=== PATIENT | female | born 1990 | race Caucasian/White ===

== ENCOUNTER → 2019-03-01 04:35 | Observation (INO) ==
[2019-03-01 03:07] VITALS: BP 167/81
[2019-03-01 03:25] LABS: Basophils % 0.4 %; Eosinophils # 0.3 K/mcL (0.0-0.6); Eosinophils % 3.4 %; Hemoglobin 11.8 g/dL (11.5-15.4); Immature Granulocytes % 0.4 % (0-4); Lymphocytes # 2.5 K/mcL (0.6-4.6); Lymphocytes % 31.4 %; Mean Corpuscular HGB Conc 35.8 g/dL (31.6-35.5); Mean Corpuscular Hemoglobin 30.3 pg (28.0-33.3); Mean Corpuscular Volume 84.6 fL (83.0-100.0); Mean Platelet Volume 10.6 fL (9.4-12.4); Monocytes # 0.6 K/mcL (0.0-1.3); Monocytes % 7.5 %; Neutrophils # 4.6 K/mcL (1.6-8.9); Platelet Count 194 K/mcL (140-400); Red Cell Distribution Width 12.4 % (11.5-14.5); Segmented Neutrophils % 56.9 %
[2019-03-01 03:33] LABS: Protein/Creatinine Ratio,Urine 0.19 mg/mg (0.00-0.20)
[2019-03-01 03:34] LABS: Amphetamine Screen,Urine Negative ng/mL (Cutoff=1000); Barbiturate Screen,Urine Negative ng/mL (Cutoff=200); Benzodiazepines Screen,Urine Negative ng/mL (Cutoff=200); Cannabinoid Screen,Urine Negative ng/mL (Cutoff = 50); Cocaine Screen,Urine Negative ng/mL (Cutoff= 300); Opiate Screen,Urine Negative ng/mL (Cutoff=300); Phencyclidine Screen,Urine Negative ng/mL (Cutoff=25)
[2019-03-01 03:44] LABS: Alanine Aminotransferase 25 Units/L (7-52); Aspartate Amino Transferase 29 Units/L (13-39); BUN/Creatinine Ratio 15 (6-26); Blood Urea Nitrogen 10 mg/dL (6-20); Lactate Dehydrogenase 184 Units/L (140-271); Uric Acid 5.1 mg/dL (2.3-7.6); eGFR For Non-African Americans > 60 (> 60)
--- NOTE | 2019-03-03 09:52 | Discharge Summary ---
Date of Encounter: 03/03/19 Time of Encounter: 03:00 - Discharge Diagnosis (1) NST (non-stress test) reactive Priority: Secondary Status: Acute Comments: FHR 135 bpm, moderate variability, +15x15 accels, no decels. (2) 38 weeks gestation of Priority: Primary Status: Acute Comments: Admit to observation for labor evaluation. (3) Elevated blood pressure affecting in third trimester, antepartum Priority: Secondary Status: Acute Comments: Two elevated blood pressures on admission, normotensive at discharge. - Discharge Medications Prescriptions: No Action Colace 100 mg PO DAILY Formula Tablet 1 tab PO DAILY Fioricet 50-300-40 mg Capsule 1 tab PO Q4H PRN PRN Reason: migraines Aspirin 81 mg PO DAILY Acetaminophen [Tylenol] 1,000 mg PO Q6HR Ondansetron HCl [Zofran] 4 mg PO Q8HR PRN PRN Reason: Pain Home Medications: Aspirin 81 mg PO DAILY 03/01/19 [History] Colace 100 mg PO DAILY 03/01/19 [History] Fioricet 50-300-40 mg Capsule 1 tab PO Q4H PRN 03/01/19 [History] Formula Tablet 1 tab PO DAILY 03/01/19 [History] Acetaminophen [Tylenol] 1,000 mg PO Q6HR 03/02/19 [History] Ondansetron HCl [Zofran] 4 mg PO Q8HR PRN 03/02/19 [History] Allergies/Adverse Reactions: Allergy/AdvReac Type Severity Reaction Status Date / Time Cephalosporins Allergy Hives Verified 03/01/19 03:10 Penicillins Allergy Hives Verified 03/01/19 03:10 succinylcholine Allergy See Verified 03/01/19 03:10 Comments Sulfa (Sulfonamide Allergy Hives Verified 03/01/19 03:10 Antibiotics) Data Procedures and tests throughout hospitalization: Laboratory Tests 03/01/19 03/01/19 03/01/19 03:10 03:10 03:10 WBC 8.0 RBC 3.90 Hgb 11.8 Hct 33.0 L MCV 84.6 MCH 30.3 MCHC 35.8 H RDW 12.4 Plt Count 194 MPV 10.6 Immature Gran % 0.4 Seg Neutrophils % 56.9 Lymphocytes % 31.4 Monocytes % 7.5 Eosinophils % 3.4 Basophils % 0.4 Neutrophils # 4.6 Lymphocytes # 2.5 Monocytes # 0.6 Eosinophils # 0.3 Basophils # 0.0 BUN Creatinine Est GFR ( Amer) Est GFR (Non-Af Amer) BUN/Creatinine Ratio Uric Acid AST ALT Lactate Dehydrogenase Urine Creatinine 26 Protein/Creatinin Ratio 0.19 Urine Total Protein 5 Urine Opiates Screen Negative Ur Barbiturates Screen Negative Ur Phencyclidine Scrn Negative Ur Amphetamines Screen Negative U Benzodiazepines Scrn Negative Urine Cocaine Screen Negative U Marijuana (THC) Screen Negative Ur Drug Screen Interp See Below 03/01/19 03:10 WBC RBC Hgb Hct MCV MCH MCHC RDW Plt Count MPV Immature Gran % Seg Neutrophils % Lymphocytes % Monocytes % Eosinophils % Basophils % Neutrophils # Lymphocytes # Monocytes # Eosinophils # Basophils # BUN 10 Creatinine 0.68 Est GFR ( Amer) > 60 Est GFR (Non-Af Amer) > 60 BUN/Creatinine Ratio 15 Uric Acid 5.1 AST 29 ALT 25 Lactate Dehydrogenase 184 Urine Creatinine Protein/Creatinin Ratio Urine Total Protein Urine Opiates Screen Ur Barbiturates Screen Ur Phencyclidine Scrn Ur Amphetamines Screen U Benzodiazepines Scrn Urine Cocaine Screen U Marijuana (THC) Screen Ur Drug Screen Interp Date of admission: 03/01/19 02:49 Primary care physician: Demi Love MD Discharging clinician: Ally Carter Anticipated date of discharge: 03/03/19 - Patient Status Disposition: Home, Self-Care Condition: Good Functional capacity at discharge: independent ambulation Overall status at discharge: patient is progressing back to baseline - Discharge Instructions Follow Up With: Demi Love MD [Primary Care Provider] - Additional Instructions: LABOR AND DELIVERY DISCHARGE INSTRUCTIONS Signs and Symptoms to be Reported to your Doctor Immediately: * Sudden gush, continuous or intermittent lead of fluid from vagina (note the time of gush and color of fluid) * Onset of bright red vaginal bleeding with or without pain (if you had a vagin al exam during this visit you may notice some dark red spotting. This is normal.) * Contractions that are 5 minutes apart (from the beginning of one contraction to the beginning of the next) and last 45-60 seonds; contractions that you can no longer walk, talk or laugh through. * A change in the baby's activity. This could be an increase or decrease in activity. * Severe headache which does not go away with tylenol. * Sudden swelling in the face, hands, arms and/or legs. * Upper abdominal pain - sometimes associated with heartburn or nausea and is not relieved by Maalox, Mylanta or Tums. * Kick Counts __ One hour after a meal, lay down on one side in a quiet place. Count the number of time the baby moves during an hour. 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 She reports positive movement, denies bleeding and vaginal leakage of fluid. Irregular contractions noted with Reactive NST. Two elevated BP's noted on arrival, H labs collected and all returned WNL. BP normalized after first 2 blood pressures. Patient is to follow up for routine visit as scheduled. Time Attestation: Total time spent providing and/or coordinating discharge services: Time Spent: Less than 30 minutes Exam - Constitutional Vitals: Temp Pulse Resp BP 98.6 F 75 15 167/81 03/01/19 02:53 03/01/19 02:53 03/01/19 02:53 03/01/19 02:53 General appearance IM: A&O X 3, pleasant, no acute distress - Respiratory Respiratory exam: Present: CTAB - Cardiovascular Cardiovascular exam IM: Present: RRR, +S1, +S2 - GI/Abdominal GI/Abdominal exam IM: normal bowel sounds - Rectal Rectal exam: deferred - External exam: normal external exam - Extremities Exam Extremities exam IM: Present: full ROM, normal capillary refill, normal inspection - Neurological Exam Neurological exam: alert, normal gait, oriented X3 - VTE Reasons for not Prescribing Prophylaxis: Treatment not Indicated - Low risk for VTE
== END | disposition home or self-care (01) ==
LOC: 1NENULAB
PROVIDERS: ADMIT Registered Nurse; ATTEND Registered Nurse

== ENCOUNTER 2019-03-06 06:10 | Inpatient (IN) ==
[2019-03-06] MEDS ORDERED: Famotidine 20 MG/2 ML VIAL IVP ONE (06:25)
[2019-03-06] MEDS ORDERED: Metoclopramide 10 MG/2 ML VIAL IVP ONE (06:25)
[2019-03-06] MEDS ORDERED: Dexmedetomidine HCl 400 MCG/100 ML MLS IVC ONE (06:28)
[2019-03-06] MEDS ORDERED: Ringers Solution, Lactated 1,000 ML ONE ×4 (06:32→08:45)
[2019-03-06] MEDS ORDERED: *HR* Phenylephrine 10 MG/ML VIAL ONE (06:45)
[2019-03-06 06:47] LABS: Basophils # 0.1 K/mcL (0.0-0.2); Basophils % 0.7 %; Eosinophils # 0.4 K/mcL (0.0-0.6); Eosinophils % 4.8 %; Hematocrit 31.9 % (35.3-44.9); Hemoglobin 11.4 g/dL (11.5-15.4); Immature Granulocytes % 0.4 % (0-4); Lymphocytes # 2.5 K/mcL (0.6-4.6); Lymphocytes % 32.7 %; Mean Corpuscular HGB Conc 35.7 g/dL (31.6-35.5); Mean Corpuscular Hemoglobin 30.2 pg (28.0-33.3); Mean Corpuscular Volume 84.6 fL (83.0-100.0); Mean Platelet Volume 11.1 fL (9.4-12.4); Monocytes # 0.5 K/mcL (0.0-1.3); Monocytes % 6.5 %; Neutrophils # 4.2 K/mcL (1.6-8.9); Platelet Count 185 K/mcL (140-400); Red Blood Count 3.77 M/mcL (3.82-4.97); Red Cell Distribution Width 12.4 % (11.5-14.5); Segmented Neutrophils % 54.9 %
[2019-03-06 06:51] LABS: Amphetamine Screen,Urine Negative ng/mL (Cutoff=1000); Barbiturate Screen,Urine Positive ng/mL (Cutoff=200)
[2019-03-06 06:52] LABS: Benzodiazepines Screen,Urine Negative ng/mL (Cutoff=300); Cannabinoid Screen,Urine Negative ng/mL (Cutoff = 50); Cocaine Screen,Urine Negative ng/mL (Cutoff= 300); Opiate Screen,Urine Negative ng/mL (Cutoff=300); Phencyclidine Screen,Urine Negative ng/mL (Cutoff=25)
[2019-03-06] MEDS ORDERED: *HR* HYDROmorphone (PF) 1 MG/ML SYRINGE SQ ONE (07:30)
--- NOTE | 2019-03-06 07:35 | Anesthesia Evaluation PreOp ---
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 previous at [facility] via spinal without comp, record obtained,) Other Medical History: Other (bladder dysfunction, constipation, muscle stiffness) Anesthesia History: No Prior Anesthetic Complications, Past Anesthesia (previous , wisdom teeth ext.) Alcohol Use: none Drug use: none Medications and Allergies Aspirin 81 mg PO DAILY 03/01/19 [History] Colace 100 mg PO DAILY 03/01/19 [History] Formula Tablet 1 tab PO DAILY 03/01/19 [History] Acetaminophen [Tylenol] 1,000 mg PO Q6HR 03/02/19 [History] Allergy/AdvReac Type Severity Reaction Status Date / Time Cephalosporins Allergy Hives Verified 03/06/19 06:22 Penicillins Allergy Hives Verified 03/06/19 06:22 Sulfa (Sulfonamide Allergy Hives Verified 03/06/19 06:22 Antibiotics) succinylcholine AdvReac See Verified 03/06/19 06:23 Comments Anesthesia Results - Labs 03/06/19 06:25 Anesthesia Exam - HEENT Pupil (Motor): Pupils equal Mallampati: II Teeth: Normal Oral Opening: Greater than 3 - AUTOMOTIVE SALESPERSON LOC: Oriented - Cardiac Rhythm: Regular Murmur: None - Pulmonary Breath Sounds: bilateral Clear Respiratory Effort: Symmetrical Anesthesia Assess/Plan ASA Score: 3 Level of consciousness: Cooperative, Oriented Anesthetic Plan: General (TIVA if needed, GA precautions in place.), Spinal, Epidural Monitoring Plan: Standard Monitors (post-op pulse ox monitoring, will do reduced dose of intrathecal narcotic, previous recieved 100mcg morphine and 10 mcg Fent, Dr. Gibson recommened attempting reduced dose of intrathecal dilaudid at 50mcg.) Recovery Plan: PACU
[2019-03-06] MEDS ORDERED: EPHEDrine 50 MG/ML VIAL ONE (07:55)
[2019-03-06] MEDS ORDERED: Bupivacaine/PF 0.75% in Dex 2 ML AMPUL INFILT ONE (08:03)
[2019-03-06] MEDS ORDERED: Lidocaine -MPF 2% 5 ML VIAL ONE (08:03)
--- NOTE | 2019-03-06 08:05 | History & Physical Report ---
Date of Encounter: 03/06/19 Time of Encounter: 08:04 24 Hour HP Update - Instructions Instructions: If the History and Physical is less than 30 days old and was completed prior to A.M. admission and or procedure and has NOT been updated on calendar day of procedure please complete this update prior to performing procedure. - Update Patient reports changes in Medical Condition: No Changes in examination, assessment, or condition: No Changes in Medication: No Preop tests/diagnostics Reviewed: Yes Surgery Remains Indicated: Yes Consent for Planned Operative Procedure(s) Verified: Yes - Pre-Operative Checklist Preoperative Checklist Indicated: Yes Prophylactic Antibiotic Ordered: Yes Home Medications Include Beta Marguerite: No Is VTE Prophylaxis Indicated?: Yes
[2019-03-06] MEDS ORDERED: Clindamycin 900 MG/50 ML 900 MG/50 ML IV.SOLN IVPB ONE (08:07)
[2019-03-06] MEDS ORDERED: *HR* Oxytocin 10 UNIT/ML VIAL IM ONE (08:07)
[2019-03-06] MEDS ORDERED: *HR* Midazolam HCl 2 MG/2 ML VIAL ONE (08:54)
[2019-03-06] MEDS ORDERED: Ondansetron 4 MG/2 ML VIAL ONE (09:07)
--- NOTE | 2019-03-06 09:28 | OB/GYN Procedure Note ---
Section - Date of procedure: 03/06/19 Preop diagnosis: desires repeat Post-op diagnosis: same Procedure: repeat low transverse Surgeon: Haleigh Valenzuela Quantitated Blood Loss: 300 Was there an trust administrative assistant present: No Anesthesiologist: Eleuterio Gibson Flight Test Supervisor: Fred Peters Anesthesia Type: Spinal section complications: none Disposition: L&D Recovery Room Specimens: Placenta, Cord blood - (s) A Delivery Date: 03/06/19 Infant Delivery Time: 08:48 Presentation: vertex Position: YOEL Route of delivery: other Gender: Female Viability: Viable Pounds: 7 Ounces: 2 Gram Weight: 3225 kg at 1 minute: 8 at 5 minutes: 9 Specimens collected: cord blood Placenta: complete extraction Cord: nuchal cord, 3 umbilical vessels, nuchal reduced - Narrative Narrative: Patient was taken to the operating room and placed in supine position with left uterine displacement following the administration of spinal anesthetic. Skin was then prepped and draped in usual sterile fashion, and a timeout procedure was performed. A Pfannenstiel incision was performed through the previous surgical scar, and extended down to the fascial layer until the abdominal cavity was entered. A bladder flap was then gently created with sharp dissection. A "window" was noted in the lower segment with amniotic fluid clearly visualized. A low transverse uterine incision was gently performed and extended bilaterally with bandage scissors. The membranes were ruptured at the time of the incision with clear fluid present. A viable female infant was delivered from a vertex presentation with scores of 8 and 9 at 1 and 5 minutes respectively and the weighed 7 pounds and 2 ounces. The cord was clamped and cut, and the was handed to the nursery team. A sample of cord blood was obtained and the placenta was manually removed. The uterine cavity was wiped clean with wet lap sponge. The uterine incision was closed in a layered fashion with 0 Vicryl suture in a running locking fashion. Good hemostasis was noted.The Paracolic gutters were then gently wiped clean with wet lap sponge. Inspection was then performed with good hemostasis still noted. The fascial layer was closed with 0 PDS Stratafix suture in a running nonlocking fashion. The subcutaneous layer was irrigated with sterile water and then closed with 4-0 Vicryl suture in a running nonlocking fashion, and continuing to close the skin in a running subcuticular fashion. A piece of Dermabond mesh was then applied over the incision site. Patient tolerated procedure well, all sponge needle and instrument counts reported as correct. Estimated blood loss was 300 mL. The urine in the Martinez catheter was clear and yellow, and she was taken to recovery room in stable condition.
[2019-03-06] MEDS ORDERED: Oxytocin 20 units/ LR 1000 mL 20 UNIT/1,000 ML BAG IVC ONE (09:56)
[2019-03-06] MEDS ORDERED: Acetaminophen IV 1,000 MG/100 ML INFUS..BTL IVPB ONE ×3 (10:39→19:00)
--- NOTE | 2019-03-06 11:10 | Anesthesia Evaluation Post Op ---
Date of Encounter: 03/06/19 Time of Encounter: 10:47 - Vital Signs Vital Signs: vss - Lungs Lungs: Clear Ascult./Percussion - Airway Airway: Non-obstructed - Mental Status Mental Status: Alert & Oriented, Answers Appropriately - Pain Pain Scale used: Anastacio (Faces) (gladis, family at ) - Nausea Vomiting Nausea Vomiting: Not Present - Discharge PostOp Status: Transfer Patient to floor (will need cont pulse ox monitoring.)
[2019-03-06] MEDS ORDERED: Oxytocin 20 units/ LR 1000 mL 20 UNIT/1,000 ML BAG IVC SCH (11:11)
[2019-03-06] MEDS ORDERED: Ondansetron 4 MG/2 ML VIAL IVP PRN (11:11)
[2019-03-06] MEDS ORDERED: *HR* Nalbuphine 10 MG/ML AMPUL IV PRN (13:01)
--- NOTE | 2019-03-06 14:39 | Anesthesia Progress Note ---
Date of Encounter: 03/06/19 Time of Encounter: 14:32 Anesthesia Note - Note Note: 03/06/19 14:37 following up, pt reports significant relief from itching with nubain, back-up narcan inf aval if needed.
[2019-03-06] MEDS: Ibuprofen 600 MG TABLET PO PRN ×2 (16:57→23:09)
[2019-03-06] MEDS ORDERED: hydrOXYzine pamoate 25 MG CAPSULE PO PRN (17:14)
[2019-03-06] MEDS ORDERED: NALOXONE IVC SCH ×2 (17:30→18:00)
[2019-03-06] MEDS ORDERED: SODIUM CHLORIDE 0.9% IVC SCH ×2 (17:30→18:00)
[2019-03-06] MEDS: Simethicone 80 MG TAB.CHEW PO PRN (20:19)
[2019-03-07] MEDS: *HR* OxyCODONE/APAP 5/325 TABLET PO PRN ×5 (00:51→20:03)
[2019-03-07] MEDS ORDERED: Acetaminophen IV 1,000 MG/100 ML INFUS..BTL IVPB ONE (03:00)
[2019-03-07] MEDS: Ibuprofen 600 MG TABLET PO PRN ×3 (04:30→18:35)
[2019-03-07 04:41] LABS: Basophils % 0.2 %; Eosinophils # 0.3 K/mcL (0.0-0.6); Eosinophils % 3.7 %; Hematocrit 29.1 % (35.3-44.9); Hemoglobin 10.4 g/dL (11.5-15.4); Immature Granulocytes % 0.4 % (0-4); Lymphocytes # 2.4 K/mcL (0.6-4.6); Lymphocytes % 26.2 %; Mean Corpuscular HGB Conc 35.7 g/dL (31.6-35.5); Mean Corpuscular Hemoglobin 30.3 pg (28.0-33.3); Mean Corpuscular Volume 84.8 fL (83.0-100.0); Mean Platelet Volume 10.4 fL (9.4-12.4); Monocytes # 0.5 K/mcL (0.0-1.3); Monocytes % 5.3 %; Neutrophils # 5.8 K/mcL (1.6-8.9); Platelet Count 181 K/mcL (140-400); Red Blood Count 3.43 M/mcL (3.82-4.97); Red Cell Distribution Width 12.4 % (11.5-14.5); Segmented Neutrophils % 64.2 %
[2019-03-07] MEDS: Prenatal Vit/FA 1 EACH TABLET PO SCH (07:41)
--- NOTE | 2019-03-07 11:27 | OB/GYN Progress Note ---
Date of Encounter: 03/07/19 Time of Encounter: 11:25 - Assessment and Plan (1) Status post repeat low transverse section Current Visit: Yes Status: Acute Meeting all day 1 milestones Continue routine care Anticipate discharge home tomorrow (2) anemia Current Visit: Yes Status: Acute Continue iron supplementation daily (3) Breast feeding status of mother Current Visit: Yes Status: Acute consult as needed (4) Myotonia congenita Current Visit: Yes Status: Acute Hospitalist consult if needed Subjective - Subjective Principal diagnosis: s/p RLTCS Interval history: Feeling well. Out of bed without dizziness. Some abdominal discomfort-using binder. Cramping minimal, using ibuprofen and Percocet. every 2- 3 hours. Some nipple soreness. Voiding without difficulty. Passing flatus, no BM yet. Tolerating clear liquid diet. Patient reports: appetite normal, voiding normally, pain well controlled, ambulating normally [place]: doing well, nursing well Objective - Vital Signs Latest vital signs: Vital Signs Temp Pulse Resp BP Pulse Ox 03/07/19 07:45 98.0 F 53 16 133/72 03/07/19 03:40 98.4 F 68 14 114/71 97 03/07/19 00:00 98.5 F 66 16 122/73 97 03/06/19 19:40 98.5 F 74 14 144/82 98 03/06/19 15:14 97.8 F 62 16 131/68 03/06/19 14:00 98.3 F 64 14 125/82 97 03/06/19 13:06 98.0 F 64 16 116/53 03/06/19 12:37 97.5 F L 51 16 119/70 03/06/19 11:50 97.5 F L 55 14 115/75 98 Intake and Output 03/06/19 03/07/19 03/07/19 23:59 07:59 15:59 Intake Total 2100 / 2100 1300 / 1300 Output Total 2700 / 2700 3000 / 3000 1150 / 1150 Balance -600 / -600 -1700 / -1700 -1150 / -1150 Intake: IV Fluids 100 / 100 Ofirmev 1,000 mg/100 ml 1,000 100 / 100 mg In 100 ml @ 400 mls/hr IVPB ONCE ONE Rx#:[id number] Oral 1999 1300 / 1300 Output: Urine 1999 3000 / 3000 1150 / 1150 Catheter 700 / 700 Other: Weight 91.535 kg Patient Weight 03/07/19 23:59 Weight 91.535 kg - Exam Lungs: bilateral: normal Chest: Normal S1, Normal S2 Extremities: Present: normal, edema Abdomen: Present: normal appearance, soft Incision: Present: normal, dry, intact, dressed Uterus: Present: normal, firm Fundal Height: 0 (midline) - Labs Labs: Laboratory Results - last 24 hr 03/07/19 04:23 WBC 9.1 RBC 3.43 L Hgb 10.4 L Hct 29.1 L MCV 84.8 MCH 30.3 MCHC 35.7 H RDW 12.4 Plt Count 181 MPV 10.4 Immature Gran % 0.4 Seg Neutrophils % 64.2 Lymphocytes % 26.2 Monocytes % 5.3 Eosinophils % 3.7 Basophils % 0.2 Neutrophils # 5.8 Lymphocytes # 2.4 Monocytes # 0.5 Eosinophils # 0.3 Basophils # 0.0
[2019-03-08] MEDS: Ibuprofen 600 MG TABLET PO PRN ×2 (00:53→07:52)
[2019-03-08] MEDS: Simethicone 80 MG TAB.CHEW PO PRN (00:53)
[2019-03-08] MEDS: *HR* OxyCODONE/APAP 5/325 TABLET PO PRN (04:11)
[2019-03-08] MEDS: Prenatal Vit/FA 1 EACH TABLET PO SCH (07:52)
[2019-03-08 08:35] VITALS: BP 137/85
--- NOTE | 2019-03-08 09:36 | Discharge Summary ---
Date of Encounter: 03/08/19 Time of Encounter: 09:36 - Discharge Diagnosis (1) Myotonia congenita Priority: Primary Status: Acute Comments: Stable Anesthesia consulted prior to delivery FU with primary physician for further management (2) anemia Priority: Primary Status: Acute Comments: Asymptomatic Will DC with iron supplements (3) Status post repeat low transverse section Priority: Primary Status: Acute Comments: delivery seondary to myotonia congenita and previous Currently pain well tolerated, incision healing appropriately FU with Dr. Valenzuela in 2 weeks (4) Breast feeding status of mother Priority: Primary Status: Acute Comments: counselling provided Breast pump prescription given to pt - Discharge Medications Prescriptions: New DiphenhydraMINE [Benadryl] 12.5 mg IVP Q6HR PRN vial PRN Reason: Itching Ibuprofen [Motrin] 600 mg PO Q6HR PRN 30 Days tablet PRN Reason: Cramping OxyCODONE/APAP 5/325 [Percocet 5/325 MG] 1 each PO Q6HR PRN 7 Days #28 tablet PRN Reason: Moderate pain 4-6 Docusate [Colace] 100 mg PO BID 30 Days capsule Ferrous Sulfate 325 mg PO DAILY 30 Days tablet Mupirocin [Bactroban Oint] 1 appl TP BID tube Simethicone [Gas-X] 80 mg PO TID PRN tab.chew PRN Reason: Dyspepsia Breast Pump [BREAST PUMP] 1 each .ROUTE AD #1 each Continue Colace 100 mg PO DAILY Formula Tablet 1 tab PO DAILY Aspirin 81 mg PO DAILY Acetaminophen [Tylenol] 1,000 mg PO Q6HR Home Medications: Aspirin 81 mg PO DAILY 03/01/19 [History] Colace 100 mg PO DAILY 03/01/19 [History] Formula Tablet 1 tab PO DAILY 03/01/19 [History] Acetaminophen [Tylenol] 1,000 mg PO Q6HR 03/02/19 [History] Breast Pump [BREAST PUMP] 1 each .ROUTE AD #1 each 03/08/19 [Rx] DiphenhydraMINE [Benadryl] 12.5 mg IVP Q6HR PRN vial 03/08/19 [Rx] Docusate [Colace] 100 mg PO BID 30 Days capsule 03/08/19 [Rx] Ferrous Sulfate 325 mg PO DAILY 30 Days tablet 03/08/19 [Rx] Ibuprofen [Motrin] 600 mg PO Q6HR PRN 30 Days tablet 03/08/19 [Rx] Mupirocin [Bactroban Oint] 1 appl TP BID tube 03/08/19 [Rx] OxyCODONE/APAP 5/325 [Percocet 5/325 MG] 1 each PO Q6HR PRN 7 Days #28 tablet 03/08/19 [Rx] Simethicone [Gas-X] 80 mg PO TID PRN tab.chew 03/08/19 [Rx] Allergies/Adverse Reactions: Allergy/AdvReac Type Severity Reaction Status Date / Time Cephalosporins Allergy Hives Verified 03/06/19 06:22 Penicillins Allergy Hives Verified 03/06/19 06:22 Sulfa (Sulfonamide Allergy Hives Verified 03/06/19 06:22 Antibiotics) succinylcholine AdvReac See Verified 03/06/19 06:23 Comments Data Procedures and tests throughout hospitalization: Laboratory Tests 03/06/19 03/06/19 03/07/19 06:25 06:25 04:23 WBC 7.6 9.1 RBC 3.77 L 3.43 L Hgb 11.4 L 10.4 L Hct 31.9 L 29.1 L MCV 84.6 84.8 MCH 30.2 30.3 MCHC 35.7 H 35.7 H RDW 12.4 12.4 Plt Count 185 181 MPV 11.1 10.4 Immature Gran % 0.4 0.4 Seg Neutrophils % 54.9 64.2 Lymphocytes % 32.7 26.2 Monocytes % 6.5 5.3 Eosinophils % 4.8 3.7 Basophils % 0.7 0.2 Neutrophils # 4.2 5.8 Lymphocytes # 2.5 2.4 Monocytes # 0.5 0.5 Eosinophils # 0.4 0.3 Basophils # 0.1 0.0 Urine Opiates Screen Negative Ur Barbiturates Screen Positive H Ur Phencyclidine Scrn Negative Ur Amphetamines Screen Negative U Benzodiazepines Scrn Negative Urine Cocaine Screen Negative U Marijuana (THC) Screen Negative Ur Drug Screen Interp See Below Date of admission: 03/06/19 06:10 Primary care physician: Demi Love MD Discharging clinician: Miriam Molina Anticipated date of discharge: 03/08/19 - Patient Status Disposition: Home, Self-Care Functional capacity at discharge: independent ambulation Overall status at discharge: patient is back to baseline - Discharge Instructions Follow Up With: Demi Love MD [Primary Care Provider] - Haleigh Valenzuela DO [Partnered Physician] - - Diet and Activity Activity: resume usual activities as tolerated Diet: advance to your usual diet Hospital Course Reason for admission: section Delivery: section Episiotomy: none Laceration: none Other procedures: none complications: none Discharge diagnosis: IUP at term delivered baby: female Hospital course: Pt well appearing and requesting to be discharged home today. Pain well controlled, incision healing appropriately, pt ambulating on own, no problems with urination, passing gas. Currently breast feeding. Scant lochia. - Date of procedure: 03/06/19 Preop diagnosis: desires repeat Post-op diagnosis: same Procedure: repeat low transverse Surgeon: Haleigh Valenzuela Quantitated Blood Loss: 300 Was there an bankruptcy assistant present: No Anesthesiologist: Eleuterio Gibson Superintendent Construction: Fred Peters Anesthesia Type: Spinal section complications: none Disposition: L&D Recovery Room Specimens: Placenta, Cord blood - Infant (s) Infant A Delivery Date: 03/06/19 Delivery Time: 08:48 Presentation: vertex Position: YOEL Route of delivery: other Gender: Female Viability: Viable Pounds: 7 Ounces: 2 Gram Weight: 3225 kg at 1 minute: 8 at 5 minutes: 9 Specimens collected: cord blood Placenta: complete extraction Cord: nuchal cord, 3 umbilical vessels, nuchal reduced Time Attestation: Total time spent providing and/or coordinating discharge services: - VTE Reasons for not Prescribing Prophylaxis: Treatment not Indicated - Low risk for VTE Documentation of Mechanical Device: Intermittent pneumatic compression device Exam - Constitutional Vitals: Temp Pulse Resp BP Pulse Ox 98.1 F 80 16 137/85 99 03/08/19 08:35 03/08/19 08:35 03/08/19 08:35 03/08/19 08:35 03/08/19 08:35 General appearance IM: A&O X 3 - Respiratory Respiratory exam: Present: CTAB - Cardiovascular Cardiovascular exam IM: Present: RRR, +S1, +S2 - GI/Abdominal GI/Abdominal exam IM: soft Incision: normal, dry, intact - Uterine Tone: Firm Uterus Position: 1 Finger Below Umbilicus - Extremities Exam Extremities exam IM: Present: normal inspection. Absent: calf tenderness, pedal edema, tenderness - Neurological Exam Neurological exam: alert, oriented X3
== END 2019-03-08 11:42 | disposition home or self-care (01) | DRG 788 ==
LOC: 1NENULAB 06:10 → 1NENUOBS 11:42